=== PATIENT | female | born 1975 | race Caucasian/White ===

== ENCOUNTER 2025-07-08 07:44 | Outpatient (CLI) | payer OTHER, SELFPAY ==
--- NOTE | 2025-07-08 | ECHO_ITS ---
Patient Info Name: Laura Victor Age: 50 years : 1975 Gender: Female Ht: 64 in Wt: 200 lbs BSA: 2.06 m2 HR: 70 bpm BP: 103 / 82 mmHg Heart Rhythm: Sinus Rhythm Technical Quality: Good Exam Date: 07/08/2025 8:04 AM Patient Status: O Admit Date: 07/08/2025 Exam Type: CA echo doppler color flow Complete two-dimensional, color flow and Doppler transthoracic echocardiogram is performed. Sales Exec: Maryam Donohue Attending Provider: Connor Mcleod Summary 1. Complete two-dimensional, color flow and Doppler transthoracic echocardiogram is performed. 2. There is normal biventricular size and systolic function. 3. There are no significant valvular abnormalities. Left Ventricle The left ventricle is normal in size and systolic function. The left ventricular ejection fraction is visually estimated to be 65-70%. Right Ventricle The right ventricle is normal in size and systolic function. Left Atria The left atrium is normal size. Right Atria The right atrium is normal size. Atrial Septum The atrial septum is grossly intact. Aortic Valve The aortic valve is trileaflet and opens well. There is no aortic regurgitation. Pulmonic Valve The pulmonic valve is normal. There is trace pulmonic valve regurgitation. Mitral Valve The mitral valve is normal. There is no mitral regurgitation. Tricuspid Valve The tricuspid valve is normal. There is no tricuspid regurgitation. Pericardium/Pleural Pericardium is normal in appearance with no evidence for significant pericardial effusion. Inferior Vena Cava Normal inferior vena cava with >50% collapse upon inspiration consistent with normal right atrial pressure, 3 mmHg. Aorta The aortic root at the level of the sinus of Valsalva measures 2.7 cm in diameter. Left Ventricular Outflow Tract Name Value Normal LVOT 2D LVOT Diameter 2.0 cm LVOT Doppler LVOT Peak Velocity 115 cm/s LVOT Peak Gradient 5 mmHg LVOT Mean Gradient 2 mmHg LVOT VTI 22 cm LVOT VTI/AV VTI Ratio 0.7 LVOT Stroke Volume 68 ml LVOT CO 4.3 l/min LVOT CI 2.1 l/min/m2 Pulmonic Valve Name Value Normal RVOT Doppler RVOT Peak Velocity 87 cm/s RVOT Peak Gradient 3 mmHg PV Doppler PV Peak Velocity 150 cm/s PV Peak Gradient 9 mmHg Mitral Valve Name Value Normal MV Diastolic Function MV E Peak Velocity 61 cm/s MV A Peak Velocity 53 cm/s MV E/A 1.2 MV Decel Time (PW) 226 ms MV Annular TDI MV E/e' (Septal) 8.6 MV E/e' (Lateral) 6.1 MV E/e' (Average) 7.4 Tricuspid Valve Name Value Normal Estimated PAP/RSVP RA Pressure 3 mmHg <=5 TV Annular TDI TV Lateral Pennie s' Velocity 12.8 cm/s >=9.5 Aorta Name Value Normal Ascending Aorta Ao Root Diameter (MM) 2.9 cm Ao Root Diam Index (MM) 1.4 cm/m2 Aortic Valve Name Value Normal AV Doppler AV Peak Velocity 154 cm/s AV Peak Gradient 10 mmHg AV Mean Gradient 5 mmHg AV VTI 29 cm AV Area (Cont Eq VTI) 2.3 cm2 >=3.0 AV Area (Cont Eq David) 2.3 cm2 AV DI (David) 0.75 AV Regurgitation 2D LVOT Area 3.1 cm2 Ventricles Name Value Normal LV Dimensions 2D/MM IVS Diastolic Thickness (2D) 0.8 cm 0.6-1.0 LVID Diastole (2D) 4.6 cm 3.8-5.2 LVIW Diastolic Thickness (2D) 0.8 cm 0.6-0.9 LVID Systole (2D) 2.6 cm 2.2-3.5 LVOT Diameter 2.0 cm LV Mass (2D Cubed) 118.73 g 67.00-162.00 LV Mass Index (2D Cubed) 58 g/m2 43-95 Relative Wall Thickness (2D) 0.34 <=0.42 LV Fractional Shortening/Ejection Fraction 2D/MM LV Fractional Shortening (2D) 44 % 27-45 LV EF (2D Teichholz) 75 % LV Diastolic Volume (4C MOD) 69 ml LV EF (4C MOD) 69 % LV Diastolic Volume (2C MOD) 69 ml LV EF (2C MOD) 73 % LV Diastolic Volume (BP MOD) 69 ml 46-106 LV Diastolic Volume Index (BP MOD) 34 ml/m2 29-61 LV Systolic Volume (BP MOD) 21 ml 14-42 LV Systolic Volume Index (BP MOD) 10 ml/m2 8-24 LV EF (BP MOD) 70 % 54-74 LV Diastolic Length (4C) 7.6 cm LV Systolic Length (4C) 6.2 cm LV Stroke Volume (4C MOD) 47 ml Atria Name Value Normal LA Dimensions LA Dimension (MM) 4.0 cm 2.7-3.8 LA Volume (4C A-L) 50 ml LA Volume (BP A-L) 56 ml RA Dimensions RA Area (4C) 13.6 cm2 <=18.0 Report Signatures
--- OUTSIDE RECORDS SUMMARY | 2025-07-08 07:50 | XMS_ITS | Encounter Summary ---
Author Organization [facility] Address [address] [place] [address] Phone Care Team Providers Care Sponge Clipper Name Role Phone Lan Reveles MD Primary Care Provider [phone] Encounter Details Date Type Department Care Team (Late st Contact Info) Description 06/20/2024 Abstract [email or web address] Historical [address] [place] [address] ProviderBean MD [address] [place] [address] Social History Tobacco Use Types Packs/Day Years Used Date Smoking Tobacco: Never Assessed Comments Unknown Sex and Gender Information Value Date Recorded Sex Assigned at Not on file Legal Sex Female 5:05 PM MDT Gender Identity Not on file Sexual Orientation Not on file documented as of this encounter Plan of Treatment Not on file documented as of this encounter Visit Diagnoses Not on filedocumented in this encounter Care Teams Sponge Clipper Relationship Specialty Start Date End Date Lan Reveles MD [address] [facility] [address] [place] [phone] PCP - General 01/14/25 documented as of this encounter
--- OUTSIDE RECORDS SUMMARY | 2025-07-08 07:50 | XMS_ITS | Encounter Summary ---
Author Organization [facility] Address [address] [place] [address] Phone Care Team Providers Care Automatic Splicing Machine Operator Name Role Phone Lan Reveles MD Primary Care Provider [phone] Encounter Details Date Type Department Care Team (Late st Contact Info) Description 06/20/2024 Abstract [email or web address] Historical [address] [place] [address] ProviderBean MD [address] [place] [address] Social History Tobacco Use Types [...] on filedocumented in this encounter Care Teams Automatic Splicing Machine Operator Relationship Specialty Start Date End Date Lan Reveles MD [address] [facility] [address] [place] [phone] PCP - General 01/14/25 documented as of this encounter
--- OUTSIDE RECORDS SUMMARY | 2025-07-08 07:50 | XMS_ITS | Patient Health Record ---
Author Organization [facility] Billing Info Address [address] [facility] [place] [address] Care Team Providers Care Assistant Operator Name Role Phone Fabricio Ferreira Unavailable Unavailable Reason For Referral No Information Immunizations Vaccine Route Administration Date Status Comme nts FLU (Past vaccine of unknown type) Unknown 09/10/2016 Administered Migrated Immuni zations on 05/14/2019 TDAP (Past vaccine of unknown type) Unknown 07/08/2015 Administered Migrated Immuni zations on 05/14/2019 TDAP (Past vaccine of unknown type) Unknown 11/29/2016 Administered Migrated Immuni zations on 05/14/2019 Problems Problem Type SNOMED Code ICD Code Onset Dates Problem Status W/U Status Risk Notes Problem Uterine leiomyoma (51924268) Leiomyoma of uterus, unspecified (D25.9) 015 Active confirmed Problem Neoplasm of uncertain behavior of skin (10103135) Neoplasm of uncertain behavior of skin (D48.5) 013 Active confirmed Problem Seasonal allergic rhinitis (392476588) Other seasonal allergic rhinitis (J30.2) 015 Active confirmed Problem Disorder of vocal cord (26491582) Other diseases of vocal cords (J38.3) 015 Active confirmed Problem Acute exacerbation of asthma (209349461) Unspecified asthma with (acute) exacerbation (J45.901) 015 Active confirmed Problem Atopic dermatitis (82638431) Atopic dermatitis, unspecified (L20.9) 013 Active confirmed Problem Allergic contact dermatitis (477559220) Allergic contact dermatitis, unspecified cause (L23.9) 017 Active confirmed Problem Ingestion dermatitis due to food (244512041) Dermatitis due to ingested food (L27.2) Active confirmed Problem Inflammatory dermatosis (682607288) Dermatitis, unspecified (L30.9) Active confirmed Problem Cyst of kidney (593666786) Cyst of kidney, acquired (N28.1) Active confirmed Problem Vulval and/or perineal noninflammatory disorders (092141020) Noninflammatory disorder of vulva and perineum, unspecified (N90.9) Active confirmed Problem High risk (99307864) Supervision of high risk , unspecified, third trimester (O09.93) Active confirmed Problem Threatened miscarriage (57365540) Threatened (O20.0) Active confirmed Problem Patient encounter status (794372201) Encounter for general adult medical examination without abnormal findings (Z00.00) 015 Active confirmed Problem Gestation period, 14 weeks (07219717) 14 weeks gestation of (Z3A.14) Active confirmed Problem Gestation period, 39 weeks (67144552) 39 weeks gestation of (Z3A.39) 017 Active confirmed Problem care status (948054125) Encounter for care and examination of lactating mother (Z39.1) 017 Active confirmed Problem History of urinary tract infection (9089450139364) Personal history of urinary (tract) infections (Z87.440) 015 Active confirmed Problem Cyst of ovary (50765354) Unspecified ovarian cysts (N83.20) Recurrence confirmed Problem Female infertility (6938811) Female infertility, unspecified (N97.9) Recurrence confirmed Problem Microscopic hematuria (955952693) Other microscopic hematuria (R31.2) Recurrence confirmed Plan Of Treatment No Information Insurance Providers Payer Name Payer Address Payer Phone Subscriber Number Group Number Insured Name Patient Relationship to Insured Coverage Start Date Coverage End Date [facility] [employer] OAP [address] [address] [place], [place] [id number] Fabricio Victor Spouse - patient is the spouse of the insured 8
--- OUTSIDE RECORDS SUMMARY | 2025-07-08 07:50 | XMS_ITS | Encounter Summary ---
Author Organization [facility] Address [address] [place] [address] Phone Care Team Providers Care Sales Professional Bilingual Name Role Phone Lan Reveles MD Primary Care Provider [phone] Encounter Details Date Type Department Care Team (Late st Contact Info) Description 06/20/2024 Abstract [email or web address] Historical [address] [place] [address] ProviderBean MD [address] [place] [address] Social History Tobacco Use Types [...] on filedocumented in this encounter Care Teams Sales Professional Bilingual Relationship Specialty Start Date End Date Lan Reveles MD [address] [facility] [address] [place] [phone] PCP - General 01/14/25 documented as of this encounter
--- OUTSIDE RECORDS SUMMARY | 2025-07-08 07:50 | XMS_ITS | Clinical Summary ---
Author Organization [facility] Address [address] [place] [phone] Phone Care Team Providers Care Manager Estate Name Role Phone Lan Reveles MD Primary Care Provider Allergies No known active allergies Medications Calcium Carbonate-Vitam in D 600-5 MG-MCG capsule once a day 11/14/1969 Act diamond Magnesium Gluconate 250 MG tablet once a day 11/14/1969 Active rosuvastatin (CRESTOR) 10 MG tablet once a day 11/14/1969 Active Mometasone Furo-Formoterol Fum (Dulera) 50-5 MCG/ACT aerosol twice a day as directed 11/14/1969 Active Dupilumab (Dupixent) 300 MG/2ML solution prefilled syringe every 2 wks 11/14/1969 Active Wegovy 0.5 MG/0.5ML solution auto-injector 12/28/2024 Activ e Farxiga 10 MG tablet TAKE 1 TABLET (10 MG) BY MOUTH EVERY DAY 90 tablet 2 01/24/2025 Active amLODIPine (NORVASC) 10 MG tablet Take 1 tablet (10 mg total) by mouth every night 90 tablet 3 04/04/2025 Active lisinopril (PRINIVIL) 20 MG tablet TAKE 1 TABLET (20 MG TOTAL) BY MOUTH ONE TIME EACH DAY 90 tablet 1 04/15/2025 Active Active Problems Problem Noted Date Diagnosed Date IgA nephropathy 09/20/2024 Assessment & Plan (04/04/2025 2:34 PM CDT): Kidney biopsy from 08/28/24 shows IgA nephropathy, M0 E0 S1 T1 C0. Segmental sclerosis present, mild interstitial fibrosis and tubular atrophy, moderate intimal fibrosis. Presence of light chain restriction in setting of IgA. SPEP and UPEP checked and no monoclonal immunoglobulins or free light chains detected. Given histologic appearance,will focus in protienuria reduction and Bp control for now. She has shown significant proteinuria reduction compared to prior 24 hour urine collection. Continue lisinopril 20 mg mg every day. Continue farxiga 10 mg every day. Continue attempts at improved Bp control. Will raise amlodipine to 10 mg qPM. Also losing weight on GLP1. She is planning to move to [place] this week. She is interested in seeing Nephrology at [facility]. Will send referral to [facility] to establish care for IgA nephropathy and CKD. Assessment & Plan (01/14/2025 2:35 PM POOL MANAGER): Kidney biopsy from 08/28/24 shows IgA nephropathy, M0 E0 S1 T1 C0. Segmental sclerosis present, mild interstitial fibrosis and tubular atrophy, moderate intimal fibrosis. Presence of light chain restriction in setting of IgA. SPEP and UPEP checked and no monoclonal immunoglobulins or free light chains detected. Given histologic appearance,will focus in protienuria reduction and Bp control for now. She has shown significant proteinuria reduction compared to prior 24 hour urine collection. Continue lisinopril 20 mg mg every day. Continue farxiga 10 mg every day. Continue attempts at improved Bp control. Also losing weight on GLP1. Assessment & Plan (09/20/2024 4:15 PM POOL MANAGER): Kidney biopsy from 08/28/24 shows IgA nephropathy, M0 E0 S1 T1 C0. Segmental sclerosis present, mild interstitial fibrosis and tubular atrophy, moderate intimal fibrosis. Presence of light chain restriction in setting of IgA. SPEP and UPEP checked and no monoclonal immunoglobulins or free light chains detected. Given histologic appearance,will focus in protienuria reduction and Bp control for now. She has shown significant proteinuria reduction compared to prior 24 hour urine collection. Continue lisinopril 20 mg mg every day. Will add farxiga 10 mg every day. Will attempt to improve bp control as well. Follow up again in 3 months with additional 24 hour urine collection. Chronic kidney disease stage 2 09/20/2024 Assessment & Plan (04/04/2025 2:35 PM CDT): Based on most recent labwork, I feel has stage 2 CKD. In the face of IgA nephropathy. Will monitor. Treating with Lexa inhibitor and SGLT 2 inhibitors for now. Assessment & Plan (01/14/2025 2:36 PM POOL MANAGER): Based on most recent labwork, I feel has stage 2 CKD. In the face of IgA nephropathy. Will monitor. Treating with Lexa inhibitor and SGLT 2 inhibitors for now. Did see a slight rise in Cr, however, at this time I feel it is associated with addition of farxiga and does not appear to be a significant rise at this time. Will follow. Assessment & Plan (09/20/2024 4:16 PM POOL MANAGER): Based on most recent labwork, I feel has stage 2 CKD. In the face of IgA nephropathy. Will monitor. Treating with Lexa inhibitor and SGLT 2 inhibitors for now. Essential (primary) hypertension 07/18/2024 Assessment & Plan (04/04/2025 2:36 PM CDT): Showing further improvement. Will continue lisinopril 20 mg every day. Will increase amlodipine to 10 mg nightly. She is also working on weight loss and diet. On GLP1. Assessment & Plan (01/14/2025 2:37 PM POOL MANAGER): Showing further improvement. Will continue lisinopril 20 mg every day and amlodipine 5 mg every day at night. She is also working on weight loss and diet. On GLP1. Will continue current regimen for now and monitor. Assessment & Plan (09/20/2024 4:17 PM POOL MANAGER): Would like to see further improvement. Will continue lisinopril 20 mg every day and add amlodipine 5 mg every day at night. Asymptomatic microscopic hematuria 06/20/2024 Assessment & Plan (04/04/2025 2:36 PM CDT): No significant hematuria on most recent UA. Will follow. Assessment & Plan (01/14/2025 2:36 PM POOL MANAGER): Minimal hematuria on most recent UA. Will follow. Assessment & Plan (09/20/2024 4:17 PM POOL MANAGER): Minimal hematuria on most recent UA. Will follow. Proteinuria 06/20/2024 Assessment & Plan (04/04/2025 2:35 PM CDT): IgA nephropathy. Improved proteinuria level on most recent 24 hour urine collection. Latest 24 hour urine collection shows protein output of 525 mg. Will continue lisinopril at 20 mg every day. Continue farxiga 10 mg every day. UA bland, no significant hematuria. Most recent urine protein/cr ratio was 0.328. Assessment & Plan (01/14/2025 2:34 PM POOL MANAGER): IgA nephropathy. Improved proteinuria level on most recent 24 hour urine collection. Latest 24 hour urine collection shows protein output of 525 mg. Will continue lisinopril at 20 mg every day. Continue farxiga 10 mg every day. UA bland, no significant hematuria. Assessment & Plan (09/20/2024 4:16 PM POOL MANAGER): IgA nephropathy. Improved proteinuria level on most recent 24 hour urine collection. Will continue lisinopril at 20 mg every day. Will add farxiga 10 mg every day. UA bland, no significant hematuria. Resolved Problems Problem Noted Date Diagnosed Date Resolved Date Disorder of kidney and ureter, unspecified 06/20/2024 09/20/2024 Encounters Date Type Department Care Team Description 04/13/2025 Refill [facility] [address] [facility] [phone] Elkin Cook MD from Last 3 Months Family History Medical History Relation Comments IgA nephropathy Daughter states daughter had IgA as an infant Relation Status Comments Daughter Social History Tobacco Use Types Packs/Day Years Used Date Smoking Tobacco: Never Smokeless Tobacco: Never Alcohol Use Standard Drinks/Week Comments Yes 0 (1 standard drink = 0.6 oz pure alcohol) occasional alcohol, used to drink more but has cut back considerably Comments Unknown Sex and Gender Information Value Date Recorded Sex Assigned at Not on file Legal Sex Female 5:05 PM MDT Gender Identity Not on file Sexual Orientation Not on file Last Filed Vital Signs Vital Sign Reading Time Taken Comments Blood Pressure 140/68 04/04/2025 1:44 PM CDT Pulse 65 04/04/2025 1:44 PM CDT Temperature - - Respiratory Rate - - Oxygen Saturation 93% 04/04/2025 1:44 PM CDT Inhaled Oxygen Concentration - - Weight 96.6 kg (212 lb 14.4 oz) 04/04/2025 1:44 PM CDT Height 165.1 cm (5' 5) 09/20/2024 3:01 PM POOL MANAGER Body Mass Index 35.43 09/20/2024 3:01 PM POOL MANAGER Plan of Treatment Health Maintenance Due Date Last Done Comments Pneumococcal PPSV23 Highest Risk Adult (1 of 3 - PCV13) 1996 Influenza Vaccine (#1) 2025 09/10/2016 Insurance [employer] Care Teams Manager Estate Relationship Specialty Start Date End Date Lan Reveles MD [address] [facility] [address] [place] [phone] PCP - General 01/14/25
--- OUTSIDE RECORDS SUMMARY | 2025-07-08 07:50 | XMS_ITS | Encounter Summary ---
Author Organization [facility] Address [address] [place] [address] Phone Care Team Providers Care Furnace Reliner Name Role Phone Lan Reveles MD Primary Care Provider [phone] Encounter Details Date Type Department Care Team (Late st Contact Info) Description 06/20/2024 Abstract [email or web address] Historical [address] [place] [address] ProviderBean MD [address] [place] [address] Social History Tobacco Use Types [...] on filedocumented in this encounter Care Teams Furnace Reliner Relationship Specialty Start Date End Date Lan Reveles MD [address] [facility] [address] [place] [phone] PCP - General 01/14/25 documented as of this encounter
--- OUTSIDE RECORDS SUMMARY | 2025-07-08 07:50 | XMS_ITS | Encounter Summary ---
Author Organization [facility] Address [address] [place] [address] Phone Care Team Providers Care Candy Puller Name Role Phone Lan Reveles MD Primary Care Provider [phone] Encounter Details Date Type Department Care Team (Late st Contact Info) Description 07/03/2024 Legacy Encounter - Labs [email or web address] Historical [address] [place] [address] ProviderBean MD [address] [place], [place] [id number] Social History Tobacco Use Types Packs/Day Years Used Date Smoking Tobacco: Never Assessed Comments Unknown Sex and Gender Information Value Date Recorded Sex Assigned at Not on file Legal Sex Female 5:05 PM MDT Gender Identity Not on file Sexual Orientation Not on file documented as of this encounter Plan of Treatment Not on file documented as of this encounter Procedures Procedure Name Priority Date/Time Associated Diagnosis Comments DPS CONVERSION - LAB RESULT SCAN PROCEDURE 07/03/2024 documented in this encounter Results * Conversion - Lab Result Scan Procedure (07/03/2024) Narrative 07/03/2024 Ordered by an unspecified provider. us Historical Provider LAB BLOOD ORDERABLES Sandy l Result documented in this encounter Visit Diagnoses Not on filedocumented in this encounter Care Teams Candy Puller Relationship Specialty Start Date End Date Lan Reveles MD [facility] [address] [place] [phone] PCP - General 01/14/25 documented as of this encounter
--- OUTSIDE RECORDS SUMMARY | 2025-07-08 07:50 | XMS_ITS | Clinical Summary ---
Author Organization [facility] Address [address] [facility] [place] [address] Care Team Providers Care Cleaning Specialist Name Role Phone Unavailable Primary Care Provider Unavailabl e Source Comments [facility],non-owned Affiliates and Associated Physician Practices is amultiple site organization consisting of ambulatory clinics and hospital sitesin [place], [place], [place] and [place]. This disclosure is being madepursuant to the Care Everywhere program and may not contain all information available regarding this patient. Last updated 18.[facility] Health Encounters Date Type Department Care Team Description 04/16/2025 Travel from Last 3 Months Social History Tobacco Use Types Packs/Day Years Used Date Smoking Tobacco: Never Assessed Comments Unknown Sex and Gender Information Value Date Recorded Sex Assigned at Not on file Legal Sex Female 10:43 AM CDT Gender Identity Not on file Sexual Orientation Not on file Plan of Treatment Upcoming Encounters Date Type Department Care Team (Late st Contact Info) Description 08/28/2025 2:30 PM CDT Office Visit [facility] - Nephrology [address] [place] [address], [place] [address] Maico Burkett MD [address] [place] [address] [place] [phone] Health Maintenance Due Date Last Done Comments COLOGUARD (AGES 45-75) - COL ON CA SCREENING 1977 COLON MONITORING 1977 COLONOSCOPY - COLON CA SCREENING 1977 CT COLONOGRAPHY - COLON CA SCREENING 1977 Colorectal Cancer Screening 1975 FIT - COLON CA SCREENING 1977 FLEX SIG - COLON CA SCREENING 1977 LIPID TESTING 1975 MAMMOGRAM 1975 HIV SCREENING 1992 HEPATITIS C SCREENING 06/30/1995 DTAP/TDAP/TD VACCINES (1 - Tdap) 1996 HEPATITIS B VACCINE (1 of 3 - 19+ 3-dose series) 1996 PAP SMEAR 1998 COVID-19 VACCINE (1 - 2023-2 5 season) 2024 DEPRESSION SCREENING 11/14/2024 INFLUENZA VACCINE (#1) 2025 09/10/2016 ZOSTER VACCINE (1 of 2) 2027 HIB VACCINE Aged Out No longer eligi ble based on patient's age to complete this topic HPV VACCINE Aged Out No longer eligi ble based on patient's age to complete this topic MENINGOCOCCAL (Group B) VACC INE SHARED DECISION-MAKING Aged Out No longer eligibl e based on patient's age to complete this topic MENINGOCOCCAL GROUPS A/C/Y/W VACCINE Aged Out No longer eligible b ased on patient's age to complete this topic PNEUMOCOCCAL VACCINE Aged Out No long er eligible based on patient's age to complete this topic Insurance [employer]
== END 2025-07-08 07:45 | disposition home or self-care (01) ==
PROVIDERS: PCP Internal Medicine; Visit Provider Internal Medicine
DX: R00.2 Palpitations (principal)
CPT/HCPCS: 93306